=== PATIENT | female | born 1980 | race Caucasian/White ===

== ENCOUNTER 2025-05-22 20:30 | Emergency (ER) | payer OTHER, SELFPAY ==
[2025-05-22 20:32] VITALS: BP 99/62
[2025-05-22 21:49] LABS: Urine Character Clear (Clear)
[2025-05-22 21:58] LABS: Urine Red Blood Cell 0-2 /HPF (0-2); Urine Squamous Cell >30 /LPF (Few)
[2025-05-22 22:02] VITALS: BMI 25.8
[2025-05-22 22:09] VITALS: BP 95/41
--- NOTE | 2025-05-22 22:22 | ED.GENMED ---
History of Present Illness
General
Chief Complaint: Flank Pain
Source: patient
Exam Limitations: none
Time Seen by Provider: 05/22/25 21:15
Nursing documentation reviewed up to this point in time: agreed with
History of Present Illness
History of Present Illness:
Patient to the emergency department with complaint of painful urination. Symptoms started yesterday and have worsened today. She denies any hematuria. She denies any back pain or abdominal pain. There is no nausea vomiting or diarrhea. She
denies any fever or chills. She has been taking Azo without improvement. Came to emergency department for evaluation.
Past History
Past History
ED Past Medical History: None
Review of Systems
Review of Systems
Allergies reviewed?: Yes
All Other Systems: ROS reviewed and negative except as documented in HPI and ROS
Constitutional: Reports no symptoms
EENT: Reports no symptoms
Respiratory: Reports no symptoms
Cardiac: Reports no symptoms
ABD/GI: Reports no symptoms
: Reports dysuria
Musculoskeletal: Reports no symptoms
Skin: Reports no symptoms
Neurological: Reports no symptoms
Psychiatric: Reports no symptoms
Phy Exam
General Physical Exam
General Presentation: well appearing and no apparent distress
General age: appears stated age
General Skin: warm and dry
General Habitus: normal
General Mental: alert
Gastrointestinal Exam
Gastrointestinal Exam: non tender, soft, no organomegaly, no pulsatile mass, non distended and no cva tenderness
Musculoskeletal Exam
Musculoskeletal Exam: full ROM and neuro vasc intact
Skin Exam
Skin Exam: normal color, warm/dry and no rash
Psychiatric Exam
Psychiatric Exam: normal mood/affect
Course
Orders/Labs/Results
Orders:
Orders
05/22/25 21:41
Urinalysis Reflex To Culture Urgent
Date Specimen was Collected: 05/22/25
Time Specimen was Collected: 21:38
Urine Microscopic Reflex Cult Urgent
Urine Culture Urgent
KATHI Source: U
Specimen Description:
Date Specimen was Collected: 05/22/25
Time Specimen was Collected: 21:38
05/22/25 22:36
Urinalysis Reflex To Culture Urgent
Date Specimen was Collected: 05/22/25
Time Specimen was Collected: 22:32
Urine Microscopic Reflex Cult Urgent
Urine Culture Urgent
KATHI Source: U
Specimen Description:
Date Specimen was Collected: 05/22/25
Time Specimen was Collected: 22:32
05/22/25 22:50
Urinalysis Reflex To Culture Urgent
Abnormal Lab Results
05/22/25 05/22/25
21:41 22:36
Ur Occult Blood Reflex 1+ A
(Negative)
Urine Nitrite (Reflex) Positive A Positive A
(Negative) (Negative)
Urine Bilirubin 3+ A 2+ A
(Negative) (Negative)
Urine Urobilinogen 2+ A 2+ A
(Neg - 1+) (Neg - 1+)
Urine Bacteria (Reflex) Few A Few A
(Negative) (Negative)
Urine Albumin (Reflex) 2+ A 2+ A
(Neg - Trace) (Neg - Trace)
Vital Signs
Initial and Last Documented VS:
Initial Vital Signs
Temp Pulse Resp BP Pulse Ox
98.0 F 78 19 99/62 100
05/22/25 20:32 05/22/25 20:32 05/22/25 20:32 05/22/25 20:32 05/22/25 20:32
Last Documented Vital Signs
Temp Pulse Resp BP Pulse Ox
98.0 F 54 18 95/41 99
05/22/25 20:32 05/22/25 22:13 05/22/25 22:13 05/22/25 22:09 05/22/25 22:27
*Radiology
Radiology exam reviewed: radiology read reviewed
*Pulse Oximetry
SaO2: 99
Oxygen Mode of Delivery: Room air
Patient hypoxic: no
*Critical Care Note
Total Time (30-74mins, 75-104mins- exclusive of procedures): Not Applicable
Update Note
Update Note:
Patient to the emergency department with complaint of dysuria. Symptoms started yesterday. She denies any abdominal or back pain on exam. No CVA tenderness. Vital signs are stable and she remains afebrile. UA results reviewed. Occult blood +1
nitrate positive bilirubin +3 urobilirubin +2. Microscopic of a few bacteria WBC 6-10 with greater than 30 squamous cells -concerning for contaminated specimen. UA was repeated after second clean-catch attempt. Results similar. Will recommend
that she continue the doxycycline pending culture results. Will call her for positive culture result, adjust antibiotic as indicated by sensitivity. She is given instructions on signs and symptoms to return to the emergency department she is
agreeable to this plan peer
ED Attending Note
-
Portions of this chart may have been created with voice recognition software.� Occasional wrong word or��sound alike� substitutions may have occurred due to the inherent limitations of voice recognition software.
Discharge Plan
Departure
Patient Disposition: Home (Routine Discharge)
Date of Disposition: 05/22/25
Time of Disposition: 23:17
Patient with high blood pressure during this ER visit?: No
Condition: Good
Covid-19: Not Applicable
Discharge Problem:
Dysuria
Instructions: General
Prescriptions:
No Action
Vitamins
1 tab PO DAILY
Tums:
1 tab PO PRN PRN (Reason: heartburn)
TYLENOL EXTRA STRENGTH
2 tab PO PRN PRN (Reason: headache)
sucralfate 1 GM/10 ML suspension
1 gm PO QID Qty: 400 0RF
pantoprazole 40 MG tablet,delayed release (DR/EC)
40 mg PO BID Qty: 28 0RF
Referrals:
Yarely Figueroa CRNP [Family Provider, General]
Activity Restrictions/Additional Instructions:
Follow-up with your family doctor. Your urine culture should result within the next 24 hours. We will contact you if a bacterial infection is identified by culture. Return to the emergency department immediately for fever/chills, fever, vomiting,
abdominal pain, or for any further concerns.
Interventions
Interventions:
*General Assessment Last Done: 05/22/25 20:34
*Neglect/Abuse Screening Last Done: 05/22/25 20:34
*ED COVID-19 Vaccine History Last Done: 05/22/25 20:34
*ED Influenza Vaccine History Last Done: 05/22/25 20:34
[facility] Risk Assessment Tool Last Done: 05/22/25 22:02
*Risk Screen - Suicide (C-SSRS) Last Done: 05/22/25 20:34
FK-Ebsjdt-Jicadaljrx Assessment Last Done: 05/22/25 22:02
ED-Female Genitourinary Assessment Last Done: 05/22/25 22:02
Discharge Date and Time
Print Language: KOREAN
[2025-05-22 22:43] LABS: Urine Character Clear (Clear)
[2025-05-22 23:11] LABS: Urine Squamous Cell >30 /LPF (Few)
[2025-05-22 23:13] LABS: Urine Red Blood Cell 0-2 /HPF (0-2)
[2025-05-22 23:24] VITALS: BP 94/62
== END 2025-05-22 23:26 | disposition home or self-care (01) ==
LOC: EMR 20:30
PROVIDERS: Nurse Practitioner; EMERGENCY PHYSICIAN Emergency Medicine; FAMILY PHYSICIAN Nurse Practitioner
DX: R30.0 Dysuria (principal)
CPT/HCPCS: 99283; 81003; 81015; 87086